=== PATIENT | male | born 1960 ===

== ENCOUNTER 2019-03-13 13:59 | Emergency (ER) | payer BC ==
[~2019-03-13] VITALS: Ht 175.3 cm; Wt 87.2 kg
[2019-03-13 14:03] VITALS: BP 147/83
[2019-03-13] MEDS ORDERED: LIDOCAINE-MPF 1%, 5ML ONE (14:47)
[2019-03-13] MEDS ORDERED: DIPH,PERTUSS(ACELL),TET VAC/PF 0.5 ML IM-VACC ONE ×2 (15:00→15:07)
[2019-03-13] MEDS ORDERED: LIDOCAINE-MPF 1%, 5ML INFIL ONE (15:00)
[2019-03-13] MEDS ORDERED: NEOSPORIN OINT. PKT 1 PACKET ONE (15:07)
== END 2019-03-13 15:23 | disposition home or self-care (01) ==
LOC: ED 14:33
DX: S61.011A Laceration without foreign body of right thumb without damage to nail, initial encounter (principal); W26.9XXA Contact with unspecified sharp object(s), initial encounter; Y93.89 Activity, other specified; Y92.009 Unspecified place in unspecified non-institutional (private) residence as the place of occurrence of the external cause; Y99.8 Other external cause status
CPT/HCPCS: 12041; 90471; 90715; 99284